=== PATIENT | male | born 1960 | race Caucasian/White ===

== ENCOUNTER 2024-01-07 09:35 | Emergency (ER) | payer BC, SELFPAY ==
--- NOTE | ~2024-01-07 | XR_ITS ---
XR knee LT min 4V 01/07/2024 10:30 Indication: Left knee pain and swelling Procedure: 4 views left knee Comparison: No prior studies for comparison. Findings: No fracture or traumatic malalignment. There is mild nonspecific prepatellar and infrapatel lar soft tissue swelling. No joint effusion. No significant joint space narrowing. Impression: 1: No acute bone or joint abnormality. Reviewed, dictated and finalized at location B. Impression: 1: No acute bone or joint abnormality.
[2024-01-07 09:33] VITALS: BP 124/86; PULSE 67; RESP 18; TEMP 36.8; O2SAT 98
[2024-01-07 09:45] VITALS: BP 111/68; O2SAT 98
[2024-01-07 10:00] VITALS: BP 120/90; O2SAT 96
[2024-01-07 10:15] VITALS: BP 137/92; O2SAT 92
--- NOTE | 2024-01-07 10:56 | ED.GENADULT ---
HPI - General Adult General Chief complaint: Extremity Injury, Lower Stated complaint: knee injury Time Seen by Provider: 01/07/24 09:44 History of Present Illness HPI narrative: Lavon Hui is a 63 y/o male who presents today with reports of playing pickle ball [employer] and he twisted to the right to get a ball and his left knee twisted / he heard an felt a pop/crunch and could not put any weight on his left knee. At rest he states his pain is a 0/10 NO other injuries Related Data Allergies Allergy/AdvReac Type Severity Reaction Status Date / Time No Known Allergies Allergy Verified 01/07/24 11:33 Review of Systems Review of Systems: All systems reviewed & are unremarkable except as noted in HPI and below Exam Narrative: GENERAL: Well-appearing, well-nourished, and in no acute distress. HEAD: Normocephalic, atraumatic. EYES: PERRLA and EOMI. ENT: Nares clear, no rhinorrhea or epistaxis. Mucous membranes moist. Oropharynx without tonsillar hypertrophy exudate or other lesions. NECK: Supple. No adenopathy or masses. No carotid bruits or JVD CHEST: Clear to auscultation. No respiratory distress. No wheezes rales or rhonchi HEART: Regular rate and rhythm. No murmur heard. Normal peripheral pulses. ABDOMEN: Soft, nontender, nondistended, normal active bowel sounds. EXTREMITIES: + pain to right patella and below left patella Mild swelling noted/ no Ecchymosis or obvious deformity SKIN: Warm, dry, no rash. NEURO: No focal deficits. Alert and oriented x3. PSYCH: Normal mood and affect. Course Vital Signs Vital signs: Vital Signs Temperature 36.8 C 01/07/24 09:33 Pulse Rate 67 01/07/24 09:33 Respiratory Rate 18 01/07/24 09:33 Blood Pressure 124/86 01/07/24 09:33 Pulse Oximetry 98 01/07/24 09:33 Oxygen Delivery Room Air 01/07/24 09:33 Temperature 36.8 C 01/07/24 09:33 Pulse Rate 76 01/07/24 11:59 Respiratory Rate 18 01/07/24 11:59 Blood Pressure 135/83 01/07/24 11:59 Pulse Oximetry 100 01/07/24 11:59 Oxygen Delivery Room Air 01/07/24 09:33 Medical Decision Making [facility] Narrative Medical decision making narrative: EXTREMITIES: + pain to right patella and below left patella Mild swelling noted/ no Ecchymosis or obvious deformity Concern for ligament injury / muscle injury/ fracture/ sprain Will check XR of left knee XR:1: No acute bone or joint abnormality. Based on hx of injury and xr results likely ligament injury plan to place pt in knee immobilizer / crutches non weight bearing until Orthopedic follow up. He would like to make an appointment with his [facility] - will also provide our Ortho Referral if needed Dr. Xiang LUCERO therapy encouraged Close follow up advised Return precautions provided Medical Records Medical records reviewed: Yes I reviewed the external patient's medical records. Vital Signs Vital Signs: Vital Signs Temperature 36.8 C 01/07/24 09:33 Pulse Rate 67 01/07/24 09:33 Respiratory Rate 18 01/07/24 09:33 Blood Pressure 124/86 01/07/24 09:33 Pulse Oximetry 98 01/07/24 09:33 Oxygen Delivery Room Air 01/07/24 09:33 Temperature 36.8 C 01/07/24 09:33 Pulse Rate 76 01/07/24 11:59 Respiratory Rate 18 01/07/24 11:59 Blood Pressure 135/83 01/07/24 11:59 Pulse Oximetry 100 01/07/24 11:59 Oxygen Delivery Room Air 01/07/24 09:33 Vitals reviewed by me Imaging Data My impression: Impressions Knee X-Ray 01/07/24 10:32 Impression: 1: No acute bone or joint abnormality. Discharge Plan Discharge Clinical Impression: Injury of knee, left Qualifiers: Encounter type: initial encounter Qualified Code(s): S89.92XA - Unspecified injury of left lower leg, initial encounter Injury of knee, ligament Qualifiers: Encounter type: initial encounter Laterality: left Qualified Code(s): S89.92XA - Unspecified injury of left lower leg, initial encounter Acute knee p
[2024-01-07] MEDS: IBUPROFEN 600 MG TABLET PO (11:42)
[2024-01-07 11:59] VITALS: BP 135/83; PULSE 76; RESP 18; O2SAT 100
== END 2024-01-07 11:55 | disposition home or self-care (01) ==
PROVIDERS: Emergency Provider Nurse Practitioner Family
DX: S89.92XA Unspecified injury of left lower leg, initial encounter (principal); X50.0XXA Overexertion from strenuous movement or load, initial encounter; Y93.73 Activity, racquet and hand sports
CPT/HCPCS: 73564; 99283; A9270